=== PATIENT | female | born 1995 | race Two or more races ===

== ENCOUNTER 2019-07-27 18:23 | Emergency (ER) | payer MEDICAID ==
[~2019-07-27] VITALS: Ht 160 cm; Wt 78.2 kg
[2019-07-27] MEDS ORDERED: NAPR-685 PO (19:13)
[2019-07-27] MEDS ORDERED: METH750T2 PO (19:13)
--- NOTE | 2019-07-27 19:16 | NUR ---
PT TO ED WITH LEFT SCIATIC PAIN. PT WAS SEEN HERE 07/21 FOR SAME AND PRESCRIBED ROBAXIN AND NAPROXIN, WHICH ARE NO LONGER HELPING. PT CONNECTED TO MONITORS. HTN, ALL OTHER VSS ON RA. PT ABLE TO AMBULATE TO ROOM WITH STEADY GAIT. AWAITING EDMD ASSESSMENT.
[2019-07-27] MEDS ORDERED: CYCLOBENZAPRINE 10 MG TABLET ONE (19:57)
[2019-07-27] MEDS ORDERED: KETOROLAC 30 MG/1 ML ONE (19:57)
[2019-07-27] MEDS ORDERED: CYCLOBENZAPRINE 10 MG TABLET PO ONE (20:00)
[2019-07-27] MEDS ORDERED: KETOROLAC 30 MG/1 ML IM ONE (20:00)
[2019-07-27 20:12] LABS: BASOPHILS # (AUTO) 0.03 x10^3/uL (0-0.1); BASOPHILS % (AUTO) 0 % (0-1); EOSINOPHILS # (AUTO) 0.41 x10^3/uL (0-0.4); EOSINOPHILS % (AUTO) 3 % (1-7); LYMPHOCYTES # (AUTO) 2.62 x10^3/uL (1-3.4); LYMPHOCYTES % (AUTO) 21 % (22-44); MD NO; MEAN CORPUSCULAR HEMOGLOBIN 24.8 pg (27.0-34.8); MEAN CORPUSCULAR HGB CONC 32.7 g/dL (32.4-35.8); MEAN PLATELET VOLUME 8.4 fL (7.4-10.4); MONOCYTES # (AUTO) 0.96 x10^3/uL (0.2-0.8); MONOCYTES % (AUTO) 8 % (2-9); NEUTROPHILS # (AUTO) 8.29 x10^3/uL (1.8-6.8); NEUTROPHILS % (AUTO) 67 % (42-75); PLATELET COUNT 352 x10^3/uL (130-400); RED BLOOD COUNT 5.49 x10^6/uL (3.82-5.3); RED CELL DISTRIBUTION WIDTH 16.1 % (9.6-15.2)
[2019-07-27 20:24] LABS: ALBUMIN 3.8 g/dL (3.4-5.0); ANION GAP 5 mmol/L (5-15); CALCIUM 8.9 mg/dL (8.5-10.1); CHLORIDE 108 mmol/L (98-107); CREATININE 0.71 mg/dL (0.55-1.02)
[2019-07-27 20:25] LABS: CULTURE INDICATED? YES; MICROSCOPIC INDICATED
[2019-07-27 20:47] VITALS: BP 180/110
--- NOTE | 2019-07-27 20:47 | NUR ---
PT RESTING IN ROOM WITH FAMILY AT BS. HTN, ALL OTHER VSS ON RA. PT STATES PAIN RELIEF AFTER MEDICATION ADMINISTRATION. AWAITING UA RESULTS.
== END 2019-07-27 21:25 | disposition home or self-care (01) ==
LOC: ED 21:00
DX: M54.42 Lumbago with sciatica, left side (principal); N30.00 Acute cystitis without hematuria
CPT/HCPCS: 36415; 72110; 80048; 81001; 82040; 84703; 85025; 87086; 96372; 99284; J1885

== ENCOUNTER 2019-09-18 16:05 | Emergency (ER) | payer MEDICAID ==
[~2019-09-18] VITALS: Ht 160 cm; Wt 79.4 kg
[~2019-09-18 16:05] MED LIST: METH750T2 PO; NAPR-685 PO
--- NOTE | 2019-09-18 17:19 | NUR ---
SHEET IRONWORKER: PT TO ROOM FROM [facility]
--- NOTE | 2019-09-18 17:57 | NUR ---
Note altheaone in EDM - 09/18/19 at 1758 by [email or web address] TASK RN: PT BP NOTED TO BE 160/110 AND 155/118. ERP DR. BROUSSARD NOTIFIED. PER ERP HAVE PT FOLLOW UP OUTPATIENT FOR BP CONTROL. PER ERP OKAY TO DC W/O BP MEDICATIONS IN ED/HOME RX.
[2019-09-18 17:59] VITALS: BP 160/110
== END 2019-09-18 18:02 | disposition home or self-care (01) ==
LOC: ED 17:45
DX: B30.3 Acute epidemic hemorrhagic conjunctivitis (enteroviral) (principal); G89.29 Other chronic pain
CPT/HCPCS: 99282